=== PATIENT | female | born 1965 | race Caucasian/White ===

== ENCOUNTER 2022-11-16 04:28 | Observation (INO) ==
[2022-11-16] MEDS ORDERED: SODIUM CHLORIDE 0.9% 1000ML 1,000 ML IV STA (04:35)
[2022-11-16] MEDS ORDERED: PANTOprazole 40 MG in SYRINGE 0 ML IV ONE (04:40)
[2022-11-16] MEDS ORDERED: GI COCKTAIL ED USE PO ONE (04:40)
[2022-11-16] MEDS ORDERED: ONDANSETRON INJ 2 MG/ML 2 ML VIAL IV STA (04:44)
[2022-11-16 05:03] LABS: Basophils # (auto) 0.05 K/uL (0-0.2); Basophils % (auto) 0.6 %; Eosinophils # (auto) 0.21 K/uL (0-0.50); Eosinophils % (auto) 2.7 %; Hemoglobin 13.3 g/dl (12.0-16.0); Immature Granulocytes # (auto) 0.03 K/uL (0.00-0.02); Immature Granulocytes % (auto) 0.4 %; Lymphocytes # (auto) 1.09 K/uL (1.2-3.4); Mean Corpuscular Hemoglobin 27.3 pg (25.0-34.0); Mean Corpuscular Hgb Conc 33.3 g/dL (32.0-36.0); Mean Corpuscular Volume 82.1 fL (80.0-100.0); Mean Platelet Volume 8.4 fL (9.4-12.3); Monocytes # (auto) 0.64 K/uL (0.24-0.82); Monocytes % (auto) 8.2 %; Neutrophils # (auto) 5.76 K/uL (1.4-6.5); Neutrophils % (auto) 74.1 %; Platelet Count 201 K/uL (130-400); RDW Standard Deviation 38.5 fL (36.4-46.3); Red Blood Count 4.87 M/uL (3.93-5.22); White Blood Count 7.78 K/ul (4.8-10.8)
[2022-11-16] MEDS: MoRPHine SULFATE 4 MG/ML 1 ML CARP\\VIAL IV PRN ×5 (05:04→11:01)
[2022-11-16 05:21] LABS: D Dimer 440 ug/L FEU (0-500)
[2022-11-16 05:26] LABS: Albumin Globulin Ratio 1.3 (0.9-2); Albumin Level 3.9 gm/dl (3.4-5.0); BUN Creatinine Ratio 17.7 (10-20); Bilirubin,Total 0.8 mg/dl (0.2-1.0); Creatinine Clr Calc Pharmacy 91.9 ml/min; Est GFR (African American) 114.4 ml/min; Est GFR (Non-African American) 98.7 ml/min; Globulin 2.9 gm/dl (2.5-4.0); Potassium 3.9 mmol/L (3.5-5.1); Total Protein 6.8 gm/dl (6.0-8.3)
[2022-11-16 05:32] LABS: Troponin I High Sensitivity 3.6 pg/ml (0-14)
[2022-11-16] MEDS ORDERED: OPTIRAY 350 100ml IV ONE (05:58)
--- NOTE | 2022-11-16 06:56 | Emergency Department Note ---
History of Present Illness General Chief complaint: Chest Pain Stated complaint: CHEST PAIN/ACID REFLUX Time Seen by Provider: 11/16/22 04:34 History of Present Illness Maximum Pain Intensity: 5 This is a 57-year-old female presenting to the emergency department for evaluation of epigastric abdominal pain/mid chest pain for the past 24 hours. The patient's symptoms began yesterday and have been persistent throughout the day. She suspects this is like acid reflux, but has not been able to get it under control with Pepcid at home. She rates the discomfort a 9/10 at worst and does not identify aggravating or alleviating factors. She does not have any upper chest discomfort or lower abdominal discomfort. No fevers or chills. No vomiting. She does not have a personal history of cardiopulmonary disease. No past history of abdominal surgery. Home Medications Medication Instructions Recorded Confirmed Type alprazolam 0.5 mg tablet 0.5 mg PO DAILY PRN Anxiety 11/16/22 11/16/22 History bismuth subsalicylate 262 mg/15 mL 524 mg PO QID PRN Acid Reflux 11/16/22 11/16/22 History oral suspension (Pepto-Bismol) escitalopram oxalate 10 mg tablet 10 mg PO QAM 11/16/22 11/16/22 History omeprazole 20 mg tablet,delayed 20 mg PO DAILY 11/16/22 11/16/22 History release Allergies Allergy/AdvReac Type Severity Reaction Status Date / Time No Known Allergies Allergy Unverified 11/16/22 06:53 Past Med/Surg History Medical History No chronic diseases present Surgical History No significant past surgical history Social History Smoking Status: Never smoker Preferred Language: [place] Feels Safe at Home: Yes Review of Systems A total of 10 systems reviewed and were otherwise negative Physical Exam Vital Signs Vital Signs - 24 hr 11/16/22 04:30 11/16/22 05:39 11/16/22 06:00 Temperature 36.1 C L Temperature Source Temporal Artery Scan Pulse Rate 64 68 70 Pulse Rate from SpO2 Sensor 69 72 Respiratory Rate 18 22 16 Respiratory Depth Normal Blood Pressure 197/100 H 162/91 H 161/104 H Blood Pressure Mean 132 114 123 Pulse Oximetry 100 100 99 Oxygen Delivery Method Room Air Room Air Room Air Sepsis Recent Fever Within 48 Hours No Sepsis New/Unexplained Change in Mental Status N/A Sepsis Action Taken by Nursing No Action Required 11/16/22 07:00 Temperature Temperature Source Pulse Rate 72 Pulse Rate from SpO2 Sensor 69 Respiratory Rate 19 Respiratory Depth Blood Pressure 159/95 H Blood Pressure Mean 116 Pulse Oximetry 99 Oxygen Delivery Method Sepsis Recent Fever Within 48 Hours Sepsis New/Unexplained Change in Mental Status Sepsis Action Taken by Nursing VITALS: Vitals are noted on the nurse's note and reviewed by myself. Vital signs stable. GENERAL: Well-developed, well-nourished, white female, who is moderately uncomfortable on presentation. She does not appear toxic. HEAD: Normocephalic atraumatic. NECK: Supple without nuchal rigidity. No lymphadenopathy. No thyromegaly. Cervical spine is nontender. HEART: Regular rate and rhythm without murmurs gallops or rubs. LUNGS: Clear to auscultation bilaterally without wheezes, rales or rhonchi. No retractions or accessory muscle use. ABDOMEN: Positive normal bowel sounds x 4. Soft with epigastric tenderness on palpation. No rebound or guarding. No lower abdominal tenderness. No CVA tenderness. MUSCULOSKELETAL: No muscle atrophy, erythema, or edema noted. Full range of motion in all extremities. Course Administered Medications Morphine Sulfate (Morphine Sulfate 4 Mg/Ml 1 Ml Carp\Vial) 4 mg IV Q30M PRN PRN Reason: Pain Stop: 11/30/22 04:43 Last Admin: 11/16/22 08:10 Dose: 4 mg Documented By: Admin: 11/16/22 07:36 Dose: 4 mg Documented By: Admin: 11/16/22 05:36 Dose: 4 mg Documented By: MARY ELLEN Admin: 11/16/22 05:04 Dose: 4 mg Documented By: MARY ELLEN Discontinued Medications Al Hydrox/Mg Hydrox/Simethicone (Gi Cocktail Ed Use) 1 dose PO ONE ONE Stop: 11/16/22 04:41 Last Admin: 11/16/22 05:05 Dose: 1 dose Documented By: MARY ELLEN Sodium Chloride (Nss 1000ml) 1,000 mls @ 999 mls/hr IV .Q1H1M STA Stop: 11/16/22 05:35 Last Infusion: 11/16/22 06:05 Dose: 0 mls/hr Documented By: MARY ELLEN Admin: 11/16/22 05:02 Dose: 999 mls/hr Documented By: MARY ELLEN Pantoprazole Sodium 40 mg/ (Syringe) 10 mls @ 5 mls/min IV NOW ONE Stop: 11/16/22 04:41 Last Admin: 11/16/22 05:18 Dose: 5 mls/min Documented By: MARY ELLEN Ioversol (Optiray 350 100ml) 86 ml IV ONCE ONE Stop: 11/16/22 05:59 Last Admin: 11/16/22 05:58 Dose: 86 ml Documented By: BRIDGETTE Ondansetron HCl (Ondansetron Inj 2 Mg/Ml 2 Ml Vial) 4 mg IV NOW STA Stop: 11/16/22 04:45 Last Admin: 11/16/22 05:03 Dose: 4 mg Documented By: MARY ELLEN Medical Decision Making Differential Diagnosis Differential diagnosis: Etiologies such as biliary colic, cholecystitis, hepatitis, pancreatitis, cardiac disease, pancreatitis, gastritis, peptic ulcer disease, appendicitis, cystitis, diverticulitis, mesenteric ischemia, inflammatory bowel disease, ileus, bowel obstruction, testicular/adnexal torsion, aortic pathology, shingles, as well as others were considered Laboratory Data Result diagrams: 11/16/22 04:50 11/16/22 04:50 Lab Results 11/16/22 11/16/22 11/16/22 Range/Units 04:50 04:50 04:50 WBC 7.78 (4.8-10.8) K/ul RBC 4.87 (3.93-5.22) M/uL Hgb 13.3 (12.0-16.0) g/dl Hct 40.0 (34.1-44.9) % MCV 82.1 (80.0-100.0) fL MCH 27.3 (25.0-34.0) pg MCHC 33.3 (32.0-36.0) g/dL RDW Std Deviation 38.5 (36.4-46.3) fL RDW Coeff of Lion 13.0 (11.5-14.5) % Plt Count 201 (130-400) K/uL MPV 8.4 L (9.4-12.3) fL Immature Gran % (Auto) 0.4 % Neut % (Auto) 74.1 % Lymph % (Auto) 14.0 % [place] % (Auto) 8.2 % Eos % (Auto) 2.7 % Baso % (Auto) 0.6 % Neut # (Auto) 5.76 (1.4-6.5) K/uL Lymph # (Auto) 1.09 L (1.2-3.4) K/uL [place] # (Auto) 0.64 (0.24-0.82) K/uL Eos # (Auto) 0.21 (0-0.50) K/uL Baso # (Auto) 0.05 (0-0.2) K/uL Immature Gran # (Auto) 0.03 H (0.00-0.02) K/uL D-Dimer 440 (0-500) ug/L FEU Sodium 133 L (136-145) mmol/L Potassium 3.9 (3.5-5.1) mmol/L Chloride 101 (98-107) mmol/L Carbon Dioxide 27 (21-32) mmol/L Anion Gap 5 (3-11) BUN 11 (6-23) mg/dl Creatinine 0.62 (0.6-1.2) mg/dl Est Cr Clr Drug Dosing 91.9 ml/min Est GFR ( Amer) 114.4 ml/min Est GFR (Non-Af Amer) 98.7 ml/min BUN/Creatinine Ratio 17.7 (10-20) Glucose 125 H (70-99(Fasting)) mg/dl Calcium 9.0 (8.5-10.1) mg/dl Total Bilirubin 0.8 (0.2-1.0) mg/dl AST 18 (13-39) U/L ALT 17 (7-52) U/L Alkaline Phosphatase 82 (34-104) U/L Troponin I High Sens 3.6 (0-14) pg/ml Total Protein 6.8 (6.0-8.3) gm/dl Albumin 3.9 (3.4-5.0) gm/dl Globulin 2.9 (2.5-4.0) gm/dl Albumin/Globulin Ratio 1.3 (0.9-2) Lipase 8 L (11-82) U/L SARS-CoV-2, RNA, NAAT (NEGATIVE) 11/16/22 Range/Units 04:55 WBC (4.8-10.8) K/ul RBC (3.93-5.22) M/uL Hgb (12.0-16.0) g/dl Hct (34.1-44.9) % MCV (80.0-100.0) fL MCH (25.0-34.0) pg MCHC (32.0-36.0) g/dL RDW Std Deviation (36.4-46.3) fL RDW Coeff of [place] (11.5-14.5) % Plt Count (130-400) K/uL MPV (9.4-12.3) fL Immature Gran % (Auto) % Neut % (Auto) % Lymph % (Auto) % [place] % (Auto) % Eos % (Auto) % Baso % (Auto) % Neut # (Auto) (1.4-6.5) K/uL Lymph # (Auto) (1.2-3.4) K/uL [place] # (Auto) (0.24-0.82) K/uL Eos # (Auto) (0-0.50) K/uL Baso # (Auto) (0-0.2) K/uL Immature Gran # (Auto) (0.00-0.02) K/uL D-Dimer (0-500) ug/L FEU Sodium (136-145) mmol/L Potassium (3.5-5.1) mmol/L Chloride (98-107) mmol/L Carbon Dioxide (21-32) mmol/L Anion Gap (3-11) BUN (6-23) mg/dl Creatinine (0.6-1.2) mg/dl Est Cr Clr Drug Dosing ml/min Est GFR ( Amer) ml/min Est GFR (Non-Af Amer) ml/min BUN/Creatinine Ratio (10-20) Glucose (70-99(Fasting)) mg/dl Calcium (8.5-10.1) mg/dl Total Bilirubin (0.2-1.0) mg/dl AST (13-39) U/L ALT (7-52) U/L Alkaline Phosphatase (34-104) U/L Troponin I High Sens (0-14) pg/ml Total Protein (6.0-8.3) gm/dl Albumin (3.4-5.0) gm/dl Globulin (2.5-4.0) gm/dl Albumin/Globulin Ratio (0.9-2) Lipase (11-82) U/L SARS-CoV-2, RNA, NAAT NEGATIVE (NEGATIVE) Imaging Data Radiologist's Impression: Chest X-Ray 11/16/22 04:35 XR chest 1V portable CLINICAL HISTORY: Chest pain, nonspecific COMPARISON STUDY: No previous studies for comparison. FINDINGS: Lung volumes are normal. Lungs are clear. There is no pneumothorax or pleural effusion. Cardiac size is at the upper limits of normal. Mediastinal contours are normal. There is no evidence for pulmonary edema. IMPRESSION: No acute cardiopulmonary findings. ACT 112: Negative or not required by law. Electronically signed by: Addison Hayes M.D. 11/16/2022 7:48 AM Abdomen/Pelvis CT 11/16/22 05:39 CT OF THE ABDOMEN AND PELVIS WITH CONTRAST CLINICAL HISTORY: Upper abdominal pain. COMPARISON STUDY: None. TECHNIQUE: Following IV administration of 86 mL of Optiray, axial images of the abdomen and pelvis were obtained from the lung bases to the proximal femurs. Images were reviewed in the axial, sagittal, and coronal planes. IV contrast was administered without complication. Automated exposure control was utilized for the study. A dose lowering technique was utilized adhering to the principles of ALARA. CT DOSE: 911.32 mGy.cm FINDINGS: Mild circumferential wall thickening of the distal esophagus is noted. There is a small hiatal hernia. Liver, spleen, adrenal glands, kidneys and pancreas are normal. There are multiple gallstones within the gallbladder, including a larger stone within the gallbladder neck. The gallbladder is moderately distended. There may be minimal adjacent stranding. There is no biliary or pancreatic ductal dilatation. There is no evidence for a bowel obstruction. The appendix is normal. Extensive colonic diverticulosis is present. There is no evidence for acute diverticulitis. Major vasculature is patent. There is no lymphadenopathy or ascites. No acute fracture within the visualized skeletal structures is present. IMPRESSION: 1. Cholelithiasis and moderate gallbladder distention with possible minimal pericholecystic stranding. Acute cholecystitis cannot be excluded. Findings discussed with Chad Sullivan at time of dictation. 2. Circumferential wall thickening distal esophagus which may reflect esophagitis. Small hiatal hernia. 3. Extensive colonic diverticulosis. No evidence for acute diverticulitis. 4. Normal appendix. No bowel obstruction. ACT 112: Negative or not required by law. Electronically signed by: Addison Hayes M.D. 11/16/2022 7:58 AM ECG Data Attestation: I personally reviewed and interpreted this ECG as follows: Indication: + chest pain Additional Comments: Normal sinus rhythm at [address] elevation No previous for comparison MDM Narrative Physical exam and history were performed. Nursing notes, EMR, and Medication List were personally reviewed. No social concerns were identified as barriers to patients care. Patient appears to have chest and abdominal symptoms bringing her to the ER. She is uncomfortable on exam and does have reproducible tenderness in the epig astric region. IV access was established and labs are obtained. EKG was normal sinus rhythm. Patient was hydrated with normal saline and given IV morphine and IV Zofran. She was also given a GI cocktail. Patient's blood work is as above and was reviewed. She does not have a significantly elevated white blood cell count, gross anemia, bandemia, or significant electrolyte imbalance. Lipase and transaminases are not diagnostic. Troponin and D-dimer x1 are both negative. An order was placed for continuous cardiac monitoring. The monitor shows a rate of 72 with normal sinus rhythm. Patient symptoms were not easily identified on blood work. Chest x-ray was reviewed by myself and radiology showing no acute process. Because of this she underwent CT scan of her abdomen and pelvis. CT scan was also reviewed by myself and radiology, and does show several gallstones and concerning signs for acute cholecystitis. This would correlate with her pain and location of discomfort. Case was discussed with the on-call surgeon, Dr. Trivedi, who will evaluate the patient here in the ER. Please see Dr. Trivedi's dictation for further patient course, plan, and disposition. The chart was completed utilizing [employer] Voice Recognition Software. Grammatical errors, random word insertions, pronoun errors, and incomplete sentences are an occasional consequence of this system due to software limitations, ambient noise, and hardware issues. Any formal questions or concerns about the content, text, or information contained within the body of this dictation should be directly addressed to the provider for clarification. . Impression & Plan Acute cholecystitis, Acute upper abdominal pain Discharge Plan Visit Data Chief Complaint: Chest Pain Stated Complaint: CHEST PAIN/ACID REFLUX ED Provider: Suze Reyna ED Midlevel Provider: Chad Sullivan Discharge Problem: Acute cholecystitis, Acute upper abdominal pain Patient Disposition: Still a Patient Forms Stand Alone Forms: [facility] Prescriptions Prescriptions: No Action escitalopram oxalate 10 mg tablet 10 mg PO QAM alprazolam 0.5 mg tablet 0.5 mg PO DAILY PRN (Reason: Anxiety) bismuth subsalicylate [Pepto-Bismol] 262 mg/15 mL Suspension 524 mg PO QID PRN (Reason: Acid Reflux) omeprazole 20 mg Tablet,Delayed Release (Dr/Ec) 20 mg PO DAILY Referrals Referrals: Missy Miller MD [Primary Care Provider] -
--- NOTE | 2022-11-16 07:50 | XRay Report ---
XR chest 1V portable CLINICAL HISTORY: Chest pain, nonspecific COMPARISON STUDY: No previous studies for comparison. FINDINGS: Lung volumes are normal. Lungs are clear. There is no pneumothorax or pleural effusion. Car diac size is at the upper limits of normal. Mediastinal contours are normal. There is no evidence for pulmonary edema. IMPRESSION: No acute cardiopulmonary findings. ACT 112: Negative or not required by law. Electronically signed by: Addison Hayes M.D. 11/16/2022 7:48 AM
--- NOTE | 2022-11-16 07:59 | CT Scan Report ---
CT OF THE ABDOMEN AND PELVIS WITH CONTRAST CLINICAL HISTORY: Upper abdominal pain. COMPARISON STUDY: None. TECHNIQUE: Following IV administration of 86 mL of Optiray, axial images of the abdomen and pelvis we re obtained from the lung bases to the proximal femurs. Images were reviewed in the axial, sagittal, and coronal planes. IV contrast was administered without complication. Automated exposure control wa s utilized for the study. A dose lowering technique was utilized adhering to the principles of ALARA . CT DOSE: 911.32 mGy.cm FINDINGS: Mild circumferential wall thickening of the distal esophagus is noted. There is a small hia kana hernia. Liver, spleen, adrenal glands, kidneys and pancreas are normal. There are multiple gallst ones within the gallbladder, including a larger stone within the gallbladder neck. The gallbladder is moderately distended. There may be minimal adjacent stranding. There is no biliary or pancreatic sandra kana dilatation. There is no evidence for a bowel obstruction. The appendix is normal. Extensive colon ic diverticulosis is present. There is no evidence for acute diverticulitis. Major vasculature is pat ent. There is no lymphadenopathy or ascites. No acute fracture within the visualized skeletal structu res is present. IMPRESSION: 1. Cholelithiasis and moderate gallbladder distention with possible minimal pericholecystic stranding . Acute cholecystitis cannot be excluded. Findings discussed with Chad Sullivan at time of dictation. 2. Circumferential wall thickening distal esophagus which may reflect esophagitis. Small hiatal herni a. 3. Extensive colonic diverticulosis. No evidence for acute diverticulitis. 4. Normal appendix. No bowel obstruction. ACT 112: Negative or not required by law. Electronically signed by: Addison Hayes M.D. 11/16/2022 7:58 AM
--- NOTE | 2022-11-16 09:48 | History & Physical Report ---
Date of Service November 16, 2022 Assessment & Plan (1) Acute cholecystitis: Plan: 57 yr old woman with persistent pain from gallstones requiring IV pain medications. While there are minimal signs of acute cholecystitis now (normal WBC ct, no lara's sign), she does have evidence of pericholecystic fluid and persistent pain/ tenderness. Unlikely to do well as an outpatient. We discussed laparoscopic cholecystectomy with risks of bleeding, infection, conversion to open, postop diarrhea, intolerance to foods, need for ercp if retained stone or bile leak. Consent signed. For OR today. Present on Admission?: Yes History of Present Illness Chief Complaint: abdominal pain Primary Care Provider: Missy Miller MD 57 yr old woman who presents to ER with abdominal pain that started yesterday evening. Intense, located in epigastrium, radiates to both sides, sharp, constan t. No prior fatty foods that caused it. Pain medications help but only for a very short time - 30 min at most. Has needed multiple rounds of pain meds to get the pain under control. No nausea or vomiting. 2-3/10 in intensity now. Has had a few similar episodes over the past few years but these always resolved. Has never known she had gallstones prior to this. Mother has dealt with gallbladder issues but has not had hers removed. Allergies Allergy/AdvReac Type Severity Reaction Status Date / Time No Known Allergies Allergy Unverified 11/16/22 06:53 Home Medications Medication Instructions Recorded Confirmed Type alprazolam 0.5 mg tablet 0.5 mg PO DAILY PRN Anxiety 11/16/22 11/16/22 History bismuth subsalicylate 262 mg/15 mL 524 mg PO QID PRN Acid Reflux 11/16/22 11/16/22 History oral suspension (Pepto-Bismol) escitalopram oxalate 10 mg tablet 10 mg PO QAM 11/16/22 11/16/22 History omeprazole 20 mg tablet,delayed 20 mg PO DAILY 11/16/22 11/16/22 History release Past Med/Surg History Medical History No chronic diseases present Surgical History No significant past surgical history Social History Smoking Status: Never smoker Preferred Language: Luxembourgish Feels Safe at Home: Yes Review of Systems Review of Systems: All systems reviewed & are unremarkable except as noted in HPI & below Physical Exam Constitutional: WD/WN, vitals as above Eyes: PERRL, conjunctivae normal, anicteric sclerae ENMT: external ear and nose normal, oropharynx normal Respiratory: normal respiratory effort, lungs clear to auscultation Cardiovascular: RRR, no murmur, no edema Gastrointestinal (Abdomen): Inspection/Auscultation: abdomen normal to inspection and normal bowel sounds; abdomen not distended Percussion/Palpati on: + abdomen tender (epigastric) and abdomen soft no Lara's sign Musculoskeletal: no cyanosis or clubbing, extremities motor strength 5/5 Neurologic: awake; no focal motor deficits Psychiatric: A+Ox3, euthymic affect Results & Data Results & Data ([facility]) Vital Signs (Past 12 Hours) Vital Signs Temp Pulse Resp BP Pulse Ox O2 Del Method 11/16/22 09:00 70 14 138/72 98 11/16/22 07:00 72 19 159/95 H 99 11/16/22 06:00 70 16 161/104 H 99 Room Air 11/16/22 05:39 68 22 162/91 H 100 Room Air 11/16/22 04:30 36.1 C L 64 18 197/100 H 100 Room Air Laboratory Results 11/16/22 11/16/22 11/16/22 Range/Units 04:55 04:50 04:50 WBC (4.8-10.8) K/ul RBC (3.93-5.22) M/uL Hgb (12.0-16.0) g/dl Hct (34.1-44.9) % MCV (80.0-100.0) fL MCH (25.0-34.0) pg MCHC (32.0-36.0) g/dL RDW Std Deviation (36.4-46.3) fL RDW Coeff of Lion (11.5-14.5) % Plt Count (130-400) K/uL MPV (9.4-12.3) fL Immature Gran % (Auto) % Neut % (Auto) % Lymph % (Auto) % [place] % (Auto) % Eos % (Auto) % Baso % (Auto) % Neut # (Auto) (1.4-6.5) K/uL Lymph # (Auto) (1.2-3.4) K/uL [place] # (Auto) (0.24-0.82) K/uL Eos # (Auto) (0-0.50) K/uL Baso # (Auto) (0-0.2) K/uL Immature Gran # (Auto) (0.00-0.02) K/uL D-Dimer 440 (0-500) ug/L FEU Sodium 133 L (136-145) mmol/L Potassium 3.9 (3.5-5.1) mmol/L Chloride 101 (98-107) mmol/L Carbon Dioxide 27 (21-32) mmol/L Anion Gap 5 (3-11) BUN 11 (6-23) mg/dl Creatinine 0.62 (0.6-1.2) mg/dl Est Cr Clr Drug Dosing 91.9 ml/min Est GFR ( Amer) 114.4 ml/min Est GFR (Non-Af Amer) 98.7 ml/min BUN/Creatinine Ratio 17.7 (10-20) Glucose 125 H (70-99(Fasting)) mg/dl Calcium 9.0 (8.5-10.1) mg/dl Total Bilirubin 0.8 (0.2-1.0) mg/dl AST 18 (13-39) U/L ALT 17 (7-52) U/L Alkaline Phosphatase 82 (34-104) U/L Troponin I High Sens 3.6 (0-14) pg/ml Total Protein 6.8 (6.0-8.3) gm/dl Albumin 3.9 (3.4-5.0) gm/dl Globulin 2.9 (2.5-4.0) gm/dl Albumin/Globulin Ratio 1.3 (0.9-2) Lipase 8 L (11-82) U/L SARS-CoV-2, RNA, NAAT NEGATIVE (NEGATIVE) 11/16/22 Range/Units 04:50 WBC 7.78 (4.8-10.8) K/ul RBC 4.87 (3.93-5.22) M/uL Hgb 13.3 (12.0-16.0) g/dl Hct 40.0 (34.1-44.9) % MCV 82.1 (80.0-100.0) fL MCH 27.3 (25.0-34.0) pg MCHC 33.3 (32.0-36.0) g/dL RDW Std Deviation 38.5 (36.4-46.3) fL RDW Coeff of Lion 13.0 (11.5-14.5) % Plt Count 201 (130-400) K/uL MPV 8.4 L (9.4-12.3) fL Immature Gran % (Auto) 0.4 % Neut % (Auto) 74.1 % Lymph % (Auto) 14.0 % [place] % (Auto) 8.2 % Eos % (Auto) 2.7 % Baso % (Auto) 0.6 % Neut # (Auto) 5.76 (1.4-6.5) K/uL Lymph # (Auto) 1.09 L (1.2-3.4) K/uL [place] # (Auto) 0.64 (0.24-0.82) K/uL Eos # (Auto) 0.21 (0-0.50) K/uL Baso # (Auto) 0.05 (0-0.2) K/uL Immature Gran # (Auto) 0.03 H (0.00-0.02) K/uL D-Dimer (0-500) ug/L FEU Sodium (136-145) mmol/L Potassium (3.5-5.1) mmol/L Chloride (98-107) mmol/L Carbon Dioxide (21-32) mmol/L Anion Gap (3-11) BUN (6-23) mg/dl Creatinine (0.6-1.2) mg/dl Est Cr Clr Drug Dosing ml/min Est GFR ( Amer) ml/min Est GFR (Non-Af Amer) ml/min BUN/Creatinine Ratio (10-20) Glucose (70-99(Fasting)) mg/dl Calcium (8.5-10.1) mg/dl Total Bilirubin (0.2-1.0) mg/dl AST (13-39) U/L ALT (7-52) U/L Alkaline Phosphatase (34-104) U/L Troponin I High Sens (0-14) pg/ml Total Protein (6.0-8.3) gm/dl Albumin (3.4-5.0) gm/dl Globulin (2.5-4.0) gm/dl Albumin/Globulin Ratio (0.9-2) Lipase (11-82) U/L SARS-CoV-2, RNA, NAAT (NEGATIVE) Diagnostic Findings CT abd/ pelvis CT OF THE ABDOMEN AND PELVIS WITH CONTRAST CLINICAL HISTORY: Upper abdominal pain. COMPARISON STUDY: None. TECHNIQUE: Following IV administration of 86 mL of Optiray, axial images of the abdomen and pelvis were obtained from the lung bases to the proximal femurs. Images were reviewed in the axial, sagittal, and coronal planes. IV contrast was administered without complication. Automated exposure control was utilized for the study. A dose lowering technique was utilized adhering to the principles of ALARA. CT DOSE: 911.32 mGy.cm FINDINGS: Mild circumferential wall thickening of the distal esophagus is noted. There is a small hiatal hernia. Liver, spleen, adrenal glands, kidneys and pancreas are normal. There are multiple gallstones within the gallbladder, including a larger stone within the gallbladder neck. The gallbladder is moderately distended. There may be minimal adjacent stranding. There is no b iliary or pancreatic ductal dilatation. There is no evidence for a bowel obstruction. The appendix is normal. Extensive colonic diverticulosis is present. There is no evidence for acute diverticulitis. Major vasculature is patent. There is no lymphadenopathy or ascites. No acute fracture within the visualized skeletal structures is present. IMPRESSION: 1. Cholelithiasis and moderate gallbladder distention with possible minimal pericholecystic stranding. Acute cholecystitis cannot be excluded. Findings discussed with Chad Sullivan at time of dictation. 2. Circumferential wall thickening distal esophagus which may reflect esophagitis. Small hiatal hernia. 3. Extensive colonic diverticulosis. No evidence for acute diverticulitis. 4. Normal appendix. No bowel obstruction.
[2022-11-16] MEDS ORDERED: AMPICILLIN/SULBACTAM SOD 3,000 MG in 0.9 % SODIUM CHLORIDE 100 ML IV SCH (09:55)
--- NOTE | 2022-11-16 10:43 | Anesthesiology Consultation ---
Date of Service November 16, 2022 Assessment & Plan (1) Encounter for pre-operative examination: History Surgery Operation Date: 11/16/22 12:00 Proposed Procedures p Laparoscopic Cholecystectomy - Amberly Trivedi MD Height/Weight Height: 4 ft 11 in Weight: 84.1 kg Allergies Allergy/AdvReac Type Severity Reaction Status Date / Time No Known Allergies Allergy Unverified 11/16/22 06:53 Medications Home Medications Medication Instructions Recorded Confirmed Last Taken alprazolam 0.5 mg tablet 0.5 mg PO DAILY PRN Anxiety 11/16/22 11/16/22 11/15/22 0.25 bismuth subsalicylate 262 mg/15 mL 524 mg PO QID PRN Acid Reflux 11/16/22 11/16/22 11/15/22 oral suspension (Pepto-Bismol) escitalopram oxalate 10 mg tablet 10 mg PO QAM 11/16/22 11/16/22 11/15/22 omeprazole 20 mg tablet,delayed 20 mg PO DAILY 11/16/22 11/16/22 11/15/22 release Active Medications Generic Name Dose Route Start Last Admin Trade Name Freq PRN Reason Stop Dose Admin Ampicillin Sodium/Sulbactam 108 mls @ 200 mls/hr 11/16/22 09:55 11/16/22 11:28 Sodium 3,000 mg/ Sodium IV 11/16/22 18:00 Infused Chloride PREOP YARELY Infusion Protocol Morphine Sulfate 4 mg 11/16/22 04:44 11/16/22 11:01 Morphine Sulfate 4 Mg/Ml 1 Ml Carp\Vial IV 11/30/22 04:43 4 mg Q30M PRN Administration Pain Past Medical History Medical History No chronic diseases present Past Surgical History Surgical History No significant past surgical history Social History Smoking Status: Never smoker Physical Exam Vital Signs Last Vital Signs Temp 36.1 C L 11/16/22 04:30 Pulse 76 11/16/22 11:13 Resp 19 11/16/22 11:13 BP 142/86 H 11/16/22 11:13 Pulse Ox 97 11/16/22 11:13 O2 Del Method 11/16/22 06:00 Testing Laboratory Results 11/16/22 04:50 11/16/22 04:50 Electrocardiogram Date: 11/16/22 Normal sinus rhythm Junctional ST depression, probably abnormal Abnormal ECG No previous ECGs available Chest X-Ray Date: 11/16/22 IMPRESSION: No acute cardiopulmonary findings.
[2022-11-16] MEDS ORDERED: MIDAZOLAM HCL 1 MG/ML 2ML VIAL ONE (11:08)
[2022-11-16] MEDS ORDERED: DEXAMETHASONE SOD INJ 4 MG/ML VIAL ONE (11:08)
[2022-11-16] MEDS ORDERED: ROCURONIUM BROMIDE 10 MG/ML 5 ML VIAL IV ONE (11:08)
[2022-11-16] MEDS ORDERED: PROPOFOL IV EMULSION 10 MG/ML 20 ML VIAL IV ONE (11:08)
[2022-11-16] MEDS ORDERED: LIDOCAINE 2% MPF LOCAL 5 ML VIAL INFIL ONE (11:08)
[2022-11-16] MEDS ORDERED: ONDANSETRON INJ 2 MG/ML 2 ML VIAL ONE (11:08)
[2022-11-16] MEDS ORDERED: fentaNYL citrate 100 MCG/2 ML VIAL ONE ×2 (11:08→12:37)
[2022-11-16] MEDS ORDERED: BUPIVACAINE 0.5 % 5 MG/1 ML MPF 30ML VIAL ONE (11:23)
[2022-11-16] MEDS ORDERED: ePHEDrine sulfate 50 MG/ML AMP IV PRN (11:49)
[2022-11-16] MEDS ORDERED: fentaNYL citrate 100 MCG/2 ML VIAL IV PRN (11:49)
[2022-11-16] MEDS ORDERED: ATROPINE SULFATE 0.1 MG/ML 10ML SYR IV PRN (11:49)
[2022-11-16] MEDS ORDERED: ONDANSETRON INJ 2 MG/ML 2 ML VIAL IV PRN ×2 (11:49→15:23)
[2022-11-16] MEDS ORDERED: HYDROmorphone INJ 1 MG/ML SYRINGE IV PRN (11:49)
[2022-11-16] MEDS ORDERED: ePHEDrine sulfate 50 MG/ML AMP ONE (12:37)
--- NOTE | 2022-11-16 14:12 | Operative Report ---
Post Operative Report Pre & Post Diagnosis Operation Date: 11/16/22 12:00 Pre-Op Diagnosis: (1) Acute cholecystitis Post-Op Diagnosis: (1) Acute calculous cholecystitis I identified the patient and participated in the time-out.: Yes Procedure Operation Date: 11/16/22 12:00 Actual Procedures p Laparoscopic Cholecystectomy(Not Applicable) - Amberly Trivedi MD Surgeon Amberly Trivedi MD Soda Tester none Estimated Blood Loss 15 Findings Consistent with Post-Op Diagnosis acute cholecystitis with long edematous gallbladder with impacted stones Fluids 1300 cc Specimens gallbladder and contents Drains none Anesthesia Type General Complications none Disposition Accompanied Patient To Recovery: No Disposition: Recovery Room Indications 57 yr old woman admitted with epigastric pain, persistent. Imaging showed gallstones and pericholecystic fluid. Consented for lap cholecystectomy. Description of Procedure The patient received Unasyn preoperatively. After the induction of general endotracheal anesthesia she is placed on sequential compression devices. Her abdomen was sterilely prepped and draped. She was positioned in Trendelenburg. A supraumbilical incision was made and a Veress needle was placed into the peritoneal cavity. This was tested with a saline drop test. Pneumoperitoneum was established with an initial pressure of 5 mmHg which was taken up to 15 mmHg. A 5 mm trocar was placed using the camera through the trocar site. Once the abdomen had been entered and insufflation established, the patient was repositioned into reverse Trendelenburg and a slight airplane to her left. 3 additional trochars were placed. There was a 10 mm placed in the epigastrium and 2 5 mm trochars placed in the right upper quadrant. The gallbladder was noted to be markedly edematous and distended. This was grasped and and was friable. In the course of grasping the gallbladder there was some spillage of bile and some large stones which were removed. The gallbladder was able to be retracted over the edge of the liver. Initial dissection was begun along what was thought to be the triangle of [place]. However as the gallbladder decompressed, it was apparent that the true triangle of [place] was much i nferior. This area was then dissected free and the cystic node identified. The cystic artery and cystic duct were clearly seen and triangulated on the gallbladder. Critical views were seen anteriorly and posteriorly. The cystic duct was divided with 2 clips on the remaining side and a single clip on the gallbladder side. The cystic artery was similarly divided. The gallbladder was then dissected off the liver bed. This was a tedious dissection due to the edematous friable nature of the gallbladder. Ultimately the very long gallbladder was removed. It was placed in an Endobag and removed through the epigastric incision. This did necessitate stretching the epigastric incision to allow for removal. All visible stones were removed. As mentioned, these were large of stones which were clearly seen. The abdomen was irrigated and suctioned multiple times. The effluent was noted to be clear. There was no evidence of any bleeding noted. The trochars were removed. The epigastric incision was closed with 0 Vicryl stitches placed anteriorly. There was a small bleeder noted in the muscle which was oversewn. The skin of all 4 incisions was closed with running subcuticular 4-0 Vicryl sutures. Steri-Strips and dry dressings were applied. She was awakened and taken to recovery in stable condition. I attest to the content of the Intraoperative Record and any orders documented therein. Any exceptions are noted below.
--- NOTE | 2022-11-16 14:52 | Electrocardiogram Report ---
Test Reason : Blood Pressure : / mmHG Vent. Rate : 065 BPM Atrial Rate : 065 BPM P-R Int : 152 ms QRS Dur : 074 ms QT Int : 396 ms P-R-T Axes : 027 039 034 degrees QTc Int : 411 ms Normal sinus rhythm Junctional ST depression, probably abnormal Abnormal ECG No previous ECGs available Confirmed by Tyler Mullins ([id number]) on 11/16/2022 2:51:27 PM Referred By: REFERRED SELF Confirmed By:Tyler Mullins
[2022-11-16] MEDS ORDERED: MoRPHine SULFATE 4 MG/ML 1 ML CARP\\VIAL IV PRN (15:23)
[2022-11-16] MEDS ORDERED: ALPRAZolam 0.5 MG TABLET PO PRN (15:23)
[2022-11-16] MEDS ORDERED: BISMUTH SUBSALICYLATE LIQD 236 ML PO PRN (15:23)
[2022-11-16] MEDS ORDERED: MoRPHine SULFATE 2 MG/ML CARP IV PRN (15:23)
[2022-11-16] MEDS ORDERED: diphenhydrAMINE Capsule 25 MG CAP PO PRN (15:23)
[2022-11-16] MEDS ORDERED: ACETAMINOPHEN 325 MG TAB PO PRN (15:23)
[2022-11-16] MEDS ORDERED: oxyCODONE/ACETAMINOPHEN 5mg/325mg TAB PO PRN ×2 (15:23)
[2022-11-16] MEDS: AMPICILLIN/SULBACTAM SOD 3,000 MG in 0.9 % SODIUM CHLORIDE 100 ML IV SCH ×2 (17:37→22:27)
--- NOTE | 2022-11-16 17:37 | Anesthesiology Progress Note ---
Date of Service November 16, 2022 Anesthesia Post Procedure Vital Signs Vital Signs: Temp Pulse Pulse Pulse Resp BP BP 11/16/22 16:23 82 16 128/79 11/16/22 15:50 36.5 C 82 16 125/75 11/16/22 15:32 36.6 C 76 16 123/77 11/16/22 15:00 78 17 130/64 11/16/22 15:10 76 12 123/69 11/16/22 14:50 36.7 C 81 14 136/67 11/16/22 14:40 77 21 139/64 11/16/22 14:30 82 19 140/73 11/16/22 14:21 36 C L 91 H 17 122/91 11/16/22 11:13 76 19 142/86 H 11/16/22 10:00 73 20 127/86 11/16/22 09:00 70 14 138/72 11/16/22 07:00 72 19 159/95 H 11/16/22 06:00 70 16 161/104 H 11/16/22 05:39 68 22 162/91 H 11/16/22 04:30 36.1 C L 64 18 197/100 H Pulse Ox O2 Del Method O2 Flow Rate 11/16/22 16:23 96 Room Air 11/16/22 15:50 97 Room Air 11/16/22 15:32 97 Room Air 11/16/22 15:00 94 Room Air 11/16/22 15:10 94 Room Air 11/16/22 14:50 95 Oxymask 2 11/16/22 14:40 98 Oxymask 4 11/16/22 14:30 99 Oxymask 5 11/16/22 14:21 98 Oxymask 7 11/16/22 11:13 97 11/16/22 10:00 97 11/16/22 09:00 98 11/16/22 07:00 99 11/16/22 06:00 99 Room Air 11/16/22 05:39 100 Room Air 11/16/22 04:30 100 Room Air Pain Intensity Abdomen: Pain Intensity: 4 Transfer of Care Handoff Completed per policy Notes Mental Status: alert / awake / arousable and participated in evaluation Patient Amnestic to Procedure: Yes Nausea / Vomiting: adequately controlled Pain: adequately controlled Airway Patency, RR, SpO2: stable & adequate BP & HR: stable & adequate Hydration State: stable & adequate Anesthetic Complications: no major complications apparent and Pt Satisfied with anesthetic care
[2022-11-16] MEDS: LACTATED RINGER'S 1,000 ML IV SCH (22:27)
[2022-11-17] MEDS: AMPICILLIN/SULBACTAM SOD 3,000 MG in 0.9 % SODIUM CHLORIDE 100 ML IV SCH ×2 (04:27→09:58)
[2022-11-17] MEDS: LACTATED RINGER'S 1,000 ML IV SCH (07:56)
[2022-11-17] MEDS ORDERED: ESCITALOPRAM OXALATE 10 MG TAB PO SCH (09:00)
[2022-11-17] MEDS ORDERED: PANTOprazole 40 MG TAB PO SCH (09:00)
--- NOTE | 2022-11-17 09:50 | Surgery Progress Note ---
Date of Service November 17, 2022 Assessment & Plan (1) Acute cholecystitis: Plan: 57 yr old admitted for observation after lap cholecystectomy showing severe acute cholecystitis with impacted stones. Doing well. Stable for discharge today. Admission and Anticipated Discharge Date Admission Date: November 16, 2022 Subjective Feels well, better than on admission. Pain well controlled without medications. No nausea, tolerating diet. Physical Exam Constitutional: WD/WN, vitals as above Eyes: PERRL, conjunctivae normal, anicteric sclerae ENMT: external ear and nose normal, oropharynx normal Respiratory: normal respiratory effort, lungs clear to auscultation Cardiovascular: RRR, no murmur, no edema Gastrointestinal (Abdomen): Inspection/Auscultation: abdomen normal to inspection, normal bowel sounds and + abdominal surgical incision (dressings dry); abdomen not distended Percussion/Palpation: abdomen soft; abdomen nontender Musculoskeletal: no cyanosis or clubbing, extremities motor strength 5/5 Neurologic: awake; no focal motor deficits Psychiatric: A+Ox3, euthymic affect Results & Data ([facility]) Vital Signs (Past 12 Hours) Vital Signs Temp Pulse Resp BP Pulse Ox O2 Del Method 11/17/22 07:31 36.6 C 75 16 122/70 97 Room Air 11/17/22 04:31 36.9 C 64 16 102/62 99 Room Air 11/16/22 22:31 36.8 C 78 16 124/80 97 Room Air
--- NOTE | 2022-11-17 09:55 | Discharge Summary ---
Date of Service November 17, 2022 Admission HPI Per Admitting Provider 57 yr old woman who presents to ER with abdominal pain that started yesterday evening. Intense, located in epigastrium, radiates to both sides, sharp, constant. No prior fatty foods that caused it. Pain medications help but only for a very short time - 30 min at most. Has needed multiple rounds of pain meds to get the pain under control. No nausea or vomiting. 2-3/10 in intensity now. Has had a few similar episodes over the past few years but these always resolved. Has never known she had gallstones prior to this. Mother has dealt with gallbladder issues but has not had hers removed. Admission Exam (Per Admitting) Constitutional WD/WN, vitals as above Eyes PERRL, conjunctivae normal, anicteric sclerae ENMT external ear and nose normal, oropharynx normal Respiratory normal respiratory effort, lungs clear to auscultation Cardiovascular RRR, no murmur, no edema Gastrointestinal (Abdomen) Inspection/Auscultation: abdomen normal to inspection, normal bowel sounds and + abdominal surgical incision (dressings dry); abdomen not distended Percussion/Palpation: abdomen soft; abdomen nontender Musculoskeletal no cyanosis or clubbing, extremities motor strength 5/5 Neurologic awake; no focal motor deficits Psychiatric A+Ox3, euthymic affect Discharge Data Procedures Performed Operation Date: 11/16/22 12:00 Actual Procedures p Laparoscopic Cholecystectomy(Not Applicable) - Amberly Trivedi MD Hospital Course (1) Acute cholecystitis: 57 yr old admitted for observation after lap cholecystectomy showing severe acute cholecystitis with impacted stones. Doing well. Stable for discharge today.
[2022-11-17] MEDS ORDERED: PERCOCET 5/325MG HOMEPACK PO ONE (10:15)
== END 2022-11-17 14:24 | disposition home or self-care (01) ==
LOC: ED 04:28 → OR 11:27 → 3E 11:27